=== PATIENT | female | born 1995 | race African-American/Black ===

== ENCOUNTER → 2019-05-08 | Outpatient (REF) | payer OTHER | LOC: M LAB REF 12:48 | PROVIDERS: ATTEND Obstetrics & Gynecology | DX: O30.041 Twin pregnancy, dichorionic/diamniotic, first trimester (principal) ==

== ENCOUNTER → 2019-06-05 | Outpatient (CLI) | payer OTHER | LOC: M SMT 13:09 | PROVIDERS: ATTEND Advanced Practice Midwife | DX: O30.001 Twin pregnancy, unspecified number of placenta and unspecified number of amniotic sacs, first trimester (principal); Z3A.00 Weeks of gestation of pregnancy not specified ==

== ENCOUNTER → 2019-06-13 | Outpatient (CLI) | payer OTHER ==
--- NOTE | 2019-06-13 13:04 | REP ---
OB ULTRASOUND, TWIN GESTATION: Real-time sonographic evaluation of the gravid uterus is performed. There is a living diamniotic dichorionic twin gestation. Placenta anterior and grade 0 with no previa or abruption. Cervix is closed and measures 3.5 cm in length. There is concordant growth. Estimated gestational age is 17 weeks 3 days, EDC 11/18/2019. Fetus A: BPD 44 mm = 19 weeks 1 day, 79th percentile HC 157 mm = 18 weeks 4 days, 65th percentile AC 134 mm = 18 weeks 6 days, 67th percentile Femur length 28 mm = 18 weeks 4 days, 62nd percentile HC/AC ratio 1.17. Estimated weight 255 grams, 73rd percentile. heart rate 151 beats per minute. Amniotic fluid within normal limits, deepest pocket of fluid 3.5 cm. SEEN/GROSSLY UNREMARKABLE Lateral ventricles Yes Posterior fossa Yes Upper lip Yes Four-chamber heart Yes LVOT Yes RVOT No Stomach Yes Cord insertion Yes Three vessel cord Yes Kidneys Yes Bladder Yes Spine Yes position: Variable. Fetus is in the midline. Fetus B: BPD 37 mm = 17 weeks 3 days, 24th percentile HC 145 mm = 17 weeks 5 days, 35th percentile AC 134 mm = 18 weeks 6 days, 68th percentile Femur length 26 mm = 18 weeks 0 days, 47th percentile HC/AC ratio 1.08. Estimated weight 236 grams, 58th percentile. heart rate 146 beats per minute. Amniotic fluid within normal limits with deepest pocket of fluid 4.0 cm. SEEN/GROSSLY UNREMARKABLE Lateral ventricles Yes Posterior fossa Yes Upper lip Yes Four-chamber heart Yes LVOT Yes RVOT Yes Stomach Yes Cord insertion Yes Three vessel cord Yes Kidneys Yes Bladder Yes Spine No position: Transverse with head toward the maternal right side in the upper midline. Electronically Signed by Pratik Lockett MD 06/15/2019 07:25 P
== END ==
LOC: M RAD 10:21
PROVIDERS: ATTEND Advanced Practice Midwife
DX: O30.042 Twin pregnancy, dichorionic/diamniotic, second trimester (principal); Z3A.17 17 weeks gestation of pregnancy

== ENCOUNTER → 2019-07-08 | Outpatient (CLI) | payer OTHER ==
--- NOTE | 2019-07-09 10:02 | REP ---
FOLLOWUP TWIN OB ULTRASOUND: 07/08/2019 COMPARISON: 06/09/2019 CLINICAL HISTORY: Incomplete anatomy screen for ventricular outflow tract for twin A and spine for twin B. FINDINGS: Sonographic evaluation shows a diamniotic dichorionic twin gestation with anterior grade 0 placenta and no previa or abruption. Cervix is 4.4 cm long and closed. Biometry: Twin ABPD 5.7 cm = 23 weeks 4 daysHC 20.7 cm= 22 weeks 5 daysAC 17.4 cm = 22 weeks 3 daysFL 4 cm = 22 weeks 6 days HL 3.5 cm = 22 weeks This gives average ultrasound age 22 weeks 4 days. By initial ultrasound she is also 22 weeks 4 days. By LMP 21 weeks 6 days. Measurement ratios are all in the normal range. This estimated weight is 523 grams or 1 pound 2 ounces, 71st percentile. Limited anatomy was evaluated. The heart rate is 140 and regular. Face and profile view of the right ventricular outflow tract are seen on today's study completing the anatomic screen with no abnormality. biometry: Twin B BPD 5.1 cm = 21 weeks 4 daysHC 19.1 cm = 21 weeks 3 daysAC 17.3 cm = 22 weeks 2 daysFL 3.5 cm = 20 weeks 6 daysHL 3.5 cm = 22 weeks 1 day This gives average ultrasound age 21 weeks 4 days. By LMP [id number]. Estimated weight 436 esequiel or 15 ounces is 36th percentile. heart rate 150 and regular. Growth ratios are all in the normal range. Anatomy screen for twin B showed the spine in transverse and longitudinal views throughout its course there by completing the anatomy screen with no visible anomalies. IMPRESSION: 1. Twin gestation with twin A presenting, vertex and twin B transverse head to the maternal left and upper. Amniotic fluid volume is visually normal around each twin deepest pocket 4.1 cm. Twin A, 4.9 cm, twin B.2. Anatomy screen should now be considered complete. There has been appropriate interval growth since the previous study. ADDENDUM at the time of signature: This report chest now presented for my review and signature. Electronically Signed by Nabil Doyle MD 07/14/2019 02:24 P
== END ==
LOC: M RAD 17:13
PROVIDERS: ATTEND Advanced Practice Midwife
DX: O30.042 Twin pregnancy, dichorionic/diamniotic, second trimester (principal); Z3A.22 22 weeks gestation of pregnancy

== ENCOUNTER → 2019-08-07 | Outpatient (CLI) | payer OTHER, SELFPAY ==
--- NOTE | 2019-08-07 11:14 | REP ---
TWIN OB ULTRASOUND: Real-time sonographic evaluation of the gravid uterus performed and demonstrates a living diamniotic, dichorionic twin gestation, placenta anterior and grade 1 with no previa or abruption. Cervix is closed and measures 2.7 cm in length. The estimated gestational age 26 weeks 1 day, EDC 11/12/2019. There is concordant growth. FETUS A: BPD 69 mm = 27 weeks 5 days, 84th percentile HC 249 mm = 27 weeks 0 days, 70th percentile AC 227 mm = 27 weeks 1 day, 70th percentile FL 48 mm = 26 weeks 1 day, 49th percentile HC/AC ratio 1.10. Estimated weight 927 grams, 61 percentile. heart rate 136 beats per minute. S/D ratio 3.46, RI 0.71. Visualized anatomy today includes lateral ventricles, posterior fossa, upper lip, stomach, three vessel cord, kidneys, bladder, and spine, which are all grossly unremarkable. position is vertex on the maternal left side. Amniotic fluid within normal limits, deepest pocket of fluid 5.4 cm. FETUS B: BPD 63 mm = 25 weeks 4 days, 38th percentile HC 246 mm = 26 weeks 5 days, 63rd percentile AC 223 mm = 26 weeks 5 day, 63rd percentile FL 49 mm = 26 weeks 3 day, 58th percentile HC/AC ratio 1.10. Estimated weight 964 grams, 57th percentile heart rate 150 beats per minute. S/D ratio 4.34 RI 0.77 Visualized anatomy includes upper lip, four chamber heart, ventricular outflow tracts, stomach, cord insertion, three vessel cord, kidneys, bladder, which are all grossly unremarkable. position transverse with the head towards the maternal right side. Amniotic fluid within normal limits, deepest pocket of fluid 5.6 cm. Electronically Signed by Pratik Lockett MD 08/07/2019 02:07 P
== END ==
LOC: M RAD 08:25
PROVIDERS: ATTEND Advanced Practice Midwife
DX: O30.042 Twin pregnancy, dichorionic/diamniotic, second trimester (principal); Z3A.26 26 weeks gestation of pregnancy